=== PATIENT | female | born 1990 | race Two or more races ===

== ENCOUNTER 2018-09-20 06:12 | Emergency (ER) | payer OTHER ==
--- NOTE | 2018-09-20 06:22 | EDPHY ---
H & P Stated Complaint: Burning sensation, urgency, "blood in urine" x1 day, pain Time Seen by Provider: 09/20/18 06:22 HPI/ROS: HPI CHIEF COMPLAINT: Urinary frequency, urinary urgency, concerned about UTI. HISTORY OF PRESENT ILLNESS: Patient otherwise healthy 28-year-old female no significant medical history presents emergency room with urinary frequency, dysuria, and blood in her urine. She states this started earlier last night. No fever denies back pain, denies abdominal pain, denies being states she was just on her menstrual cycle and completed it. Denies any other complaints. 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 Denies drugs alcohol tobacco. Family History: Noncontributory ROS REVIEW OF SYSTEMS: 10 Systems were reviewed and negative with the exception of the elements mentioned in the history of present illness. Exam Constitutional triage nursing summary reviewed, vital signs reviewed, awake/ alert. Eyes normal conjunctivae and sclera, EOMI, PERRLA. HENT normal inspection, atraumatic, moist mucus membranes, no epistaxis, neck supple/ no meningismus, no raccoon eyes. Respiratory clear to auscultation bilaterally, normal breath sounds, no respiratory distress, no wheezing. Cardiovascular rate normal, regular rhythm, no murmur, no edema, distal pulses normal. Gastrointestinal soft, non-tender, no rebound, no guarding, normal bowel sounds, no distension, no pulsatile mass. Genitourinary no CVA tenderness. Musculoskeletal no midline vertebral tenderness, full range of motion, no calf swelling, no tenderness of extremities, no meningismus, good pulses, neurovascularly intact. Skin pink, warm, & dry, no rash, skin atraumatic. Neurologic awake, alert and oriented x 3, AAOx3, moves all 4 extremities equally, motor intact, sensory intact, CN II-XII intact, normal cerebellar, normal vision, normal speech. Psychiatric normal mood/affect. Heme/Lymph/Immune no lymphadenopathy. Differential Diagnosis: Includes but is not limited to in a particular order UTI, cystitis, pyelonephritis, Medical Decision Making: Plan for this patient urinalysis. Re-evaluation: Patient's urinalysis reviewed shows urinary tract infection. Urine culture will be sent. Keflex and pyridium. Return precautions discussed with the patient she understands return emergency room she develops worsening symptoms includes worsening abdominal pain, fever, vomiting. negative. Source: Patient - Personal History LMP (Females 10-55): 1-7 Days Ago Current Tetanus Diphtheria and Acellular Pertussis (TDAP): Yes Tetanus Vaccine Date: 2015 - Medical/Surgical History Hx Asthma: No Hx Chronic Respiratory Disease: No Hx Diabetes: No Hx Cardiac Disease: No Hx Renal Disease: No Hx Cirrhosis: No Hx Alcoholism: No Hx HIV/AIDS: No Hx Splenectomy or Spleen Trauma: No Other PMH: Denies - Social History Smoking Status: Never smoked Constitutional: Initial Vital Signs Temperature (C) 36.8 C 09/20/18 06:14 Heart Rate 72 09/20/18 06:14 Respiratory Rate 16 09/20/18 06:14 Blood Pressure 126/72 H 09/20/18 06:14 O2 Sat (%) 98 09/20/18 06:14 O2 Delivery Mode Room Air Allergies/Adverse Reactions: No Known Allergies Allergy (Unverified 09/20/18 06:19) Home Medications: Medication Instructions Recorded Cephalexin [Keflex] 500 mg PO Q6H #28 cap 09/20/18 Herbals/Supplements -Info Only 09/20/18 Phenazopyridine HCl [Pyridium] 200 mg PO TID #15 tab 09/20/18 Medical Decision Making - Data Points Laboratory Results: 09/20/18 06:24 Urine Color YELLOW Urine Appearance MODERATELY TURBID Urine pH 5.0 (5.0-7.5) Ur Specific [place] 1.023 (1.002-1.030) Urine Protein 2+ H (NEGATIVE) Urine Ketones NEGATIVE (NEGATIVE) Urine Blood 3+ H (NEGATIVE) Urine Nitrate NEGATIVE (NEGATIVE) Urine Bilirubin NEGATIVE (NEGATIVE) Urine Urobilinogen NEGATIVE EU EU (0.2-1.0) Ur Leukocyte Esterase 2+ H (NEGATIVE) Urine RBC 50-182 /hpf H /hpf (0-3) Urine WBC 50-182 /hpf H /hpf (0-3) Ur Epithelial Cells TRACE /lpf /lpf (NONE-1+) Urine Bacteria 1+ /hpf H /hpf (NONE SEEN) Urine Mucus 3+ /lpf H /lpf (NONE-1+) Urine Glucose NEGATIVE (NEGATIVE) Point of Care Test Results: Urine Collection Date 09/20/18 Collection Time 06:32 HCG Results Negative Departure - Departure Disposition: Home, Routine, Self-Care Clinical Impression: Urinary tract infection Qualifiers: Urinary tract infection type: acute cystitis Hematuria presence: with hematuria Qualified Code(s): N30.01 - Acute cystitis with hematuria Condition: Good Instructions: Cephalexin (By mouth), Urinary Tract Infection in Women (ED) Additional Instructions: 1. Drink lots of fluids stay well-hydrated. 2. Antibiotics as prescribed. 3. Return to the emergency room if develops worsening symptoms Referrals: NONE *PRIMARY CARE P,. [Primary Care Provider] - As per Instructions [facility] [Clinic] - As per Instructions Prescriptions: Cephalexin [Keflex] 500 mg PO Q6H #28 cap Phenazopyridine HCl [Pyridium] 200 mg PO TID #15 tab
[2018-09-20] MEDS ORDERED: CEPHALEXIN 500 MG CAP PO ONE (07:05)
[2018-09-20] MEDS ORDERED: CEPHALEXIN 500MG PREPACK#4 BTL TAKEHOME ONE (07:05)
[2018-09-20 07:39] VITALS: BP 120/78
== END 2018-09-20 07:39 | disposition home or self-care (01) ==
DX: N30.01 Acute cystitis with hematuria (principal)
CPT/HCPCS: 81025-ER